=== PATIENT | female | born 1995 | race American Indian/Alaskan Native ===

== ENCOUNTER 2017-09-16 13:30 | Emergency (ER) | payer MEDICAID ==
[2017-09-16 14:37] VITALS: BP 107/52
[2017-09-16 15:44] LABS: Basophils % (Auto) 0.5 % (0.0-1.8); Eosinophils # (Auto) 0.1 K/mm3 (0.0-0.4); Eosinophils % (Auto) 1.3 % (0.0-4.3); Hematocrit 37.2 % (30.3-42.9); Hemoglobin 12.2 gm/dl (10.1-14.3); Lymphocytes # (Auto) 1.9 K/mm3 (1.2-5.4); Lymphocytes % (Auto) 29.1 % (13.4-35.0); Mean Corpuscular HGB Conc 33 % (30-34); Mean Corpuscular Hemoglobin 26 pg (28-32); Mean Corpuscular Volume 79 fl (79-97); Monocytes # (Auto) 0.6 K/mm3 (0.0-0.8); Monocytes % (Auto) 9.3 % (0.0-7.3); Platelet Count 218 K/mm3 (140-440); Red Blood Count 4.69 M/mm3 (3.65-5.03); Red Cell Distribution Width 16.4 % (13.2-15.2)
--- NOTE | 2017-09-16 17:51 | Emergency Department Report ---
ED Female HPI - General Chief complaint: Vaginal Bleeding Stated complaint: VAGINAL BLEEDING/ Time Seen by Provider: 09/16/17 15:14 Source: patient Mode of arrival: Ambulatory Limitations: No Limitations - History of Present Illness Initial comments: 22-year-old -[place] female reports that she is 8 weeks comes in with vaginal bleeding for 2 days and abdominal cramping. Patient reports she 's been having small clots for the last 2 days. She reports that she's been having abdominal cramping consistent for the 8 weeks she's been . Patient reports that heard, cramping pain is 7 out of 10. She denies any nausea vomiting no fever no chills no back pain or dysuria. She reports that she is on her third pads as of today. 1 para 0. She has not started OB care appointment scheduled for this Thursday. MD Complaint: vaginal bleeding, pelvic pain -: days(s) (vaginal bleeding with small clots 2 days), week(s) (abdominal cramping 8 weeks) Location: suprapubic Radiation: non-radiating Severity scale (0 -10): 7 Quality: cramping Consistency: constant Improves with: none Worsens with: none Are you Now?: Yes (8weeks) Last Menstrual Period: 07/21/17 EDC: 04/27/18 Associated Symptoms: vaginal bleeding, abdominal pain. denies: vaginal discharge, nausea/vomiting, fever/chills, headaches, loss of appetite, hematuria , shortness of breath, syncope, weakness - Related Data Sexually active: Yes : 1 Para: 0 Previous Rx's Medication Instructions Recorded Last Taken Type Amoxicillin [Amoxicillin TAB] 875 mg PO BID #14 tablet 09/16/17 Unknown Rx Allergies Allergy/AdvReac Type Severity Reaction Status Date / Time No Known Allergies Allergy Unverified 09/16/17 14:32 ED Review of Systems ROS: Stated complaint: VAGINAL BLEEDING/ Other details as noted in HPI Constitutional: denies: chills, fever Cardiovascular: denies: chest pain, palpitations, dyspnea on exertion Gastrointestinal: abdominal pain Genitourinary: other (vaginal bleeding) Musculoskeletal: denies: back pain, joint swelling, arthralgia Skin: denies: rash, lesions Neurological: denies: headache, weakness, paresthesias Psychiatric: denies: anxiety, depression Hematological/Lymphatic: denies: easy bleeding, easy bruising ED Past Medical Hx - Past Medical History Previous Medical History?: No - Surgical History Past Surgical History?: No - Social History Smoking Status: Never Smoker Substance Use Type: Alcohol - Medications Home Medications: Home Medications Medication Instructions Recorded Confirmed Last Taken Type Amoxicillin [Amoxicillin TAB] 875 mg PO BID #14 tablet 09/16/17 Unknown Rx ED Physical Exam - General Limitations: No Limitations General appearance: alert, in no apparent distress - Head Head exam: Present: atraumatic, normocephalic - Eye Eye exam: Present: normal appearance - Respiratory Respiratory exam: Present: normal lung sounds bilaterally. Absent: respiratory distress - Cardiovascular Cardiovascular Exam: Present: regular rate, normal rhythm. Absent: systolic murmur, diastolic murmur, rubs, gallop - GI/Abdominal GI/Abdominal exam: Present: soft, normal bowel sounds. Absent: distended, tenderness, guarding, rebound - Extremities Exam Extremities exam: Present: normal inspection, full ROM - Neurological Exam Neurological exam: Present: alert, oriented X3 - Psychiatric Psychiatric exam: Present: normal affect, normal mood - Skin Skin exam: Present: warm, dry, intact, normal color. Absent: rash ED Course Vital Signs 09/16/17 14:32 Temperature 98.1 F Pulse Rate 84 Respiratory 20 Rate Blood Pressure 107/52 O2 Sat by Pulse 100 Oximetry ED Medical Decision Making - Lab Data Result diagrams: 09/16/17 15:16 - Radiology Data Radiology results: report reviewed, image reviewed FINAL REPORT PROCEDURE: US OB TRANSVAGINAL TECHNIQUE: Real-time transvaginal sonography of the uterus, placenta, amniotic fluid, adnexa, and fetus was performed with image documentation. Measurements were obtained to determine age/size. M-mode Doppler was used to document heartbeat. CPT 29999 HISTORY: 8 weeks vaginal bleeding with cramps COMPARISON: No prior studies are available for comparison. FINDINGS: A fluid-filled sac measuring 6 millimeters in diameter is identified in the uterine cavity corresponding to 5 weeks and 2 days of gestational age. There is no evidence of any pole. Bilateral ovaries are normal in size and echotexture. There is no free fluid in the pelvic cavity. IMPRESSION: A fluid-filled sac in the uterine cavity without a pole most likely represents a very early viable gestation versus an early gestation failure. Clinical correlation and follow-up studies are recommended. Transcribed By: [facility] [place] Dictated By: TERRY MOREJON Electronically Authenticated By: TERRY MOREJON Signed Date/Time: 09/16/171800 DD/ 00 TD/TT: 09/16/171800 - Medical Decision Making Patient has been evaluated by this provider fast track. CBC CMP hCG quantitative, ultrasound less than 14 weeks with OB transvaginal. Awaiting results of the ultrasound. Patient's hCG was only 376 which does not represent 8 weeks of . Discussed with patient she needs to return to the emergency room in 2-3 days to have her repeat serum hCG. We are looking for that number to double in size to determine if this is a viable . Discussed the patient she has a urinary tract infection lipase patient on amoxicillin 875 mg twice a day for 7 days. It is important for her to make contact to her [facility] and informed him of her ER visit and outcome. Patient verbalized understanding. Critical care attestation.: If time is entered above; I have spent that time in minutes in the direct care of this critically ill patient, excluding procedure time. ED Disposition Clinical Impression: Threatened affecting intrauterine , UTI (urinary tract infection) in in first trimester Disposition: DC-01 TO HOME OR SELFCARE Is pt being admited?: No Does the pt Need Aspirin: No Condition: Stable Instructions: Threatened Miscarriage (ED) Additional Instructions: It is very important for you to follow up in 3 days to have a repeat hCG serum to determine if there levels are increasing. Level should double in number in 2 -3 days for a viable . You have a urinary tract infection I will place her antibiotics for that. It is important for him to also follow-up with her OB provider as well.. Prescriptions: Amoxicillin [Amoxicillin TAB] 875 mg PO BID #14 tablet Referrals: [facility] [Provider Group] - 3-5 Days [facility] [Provider Group] - 3-5 Days [facility] [Provider Group] - 3-5 Days [facility] [Provider Group] - 3-5 Days Forms: Work/School Release Form(ED)
--- NOTE | 2017-09-16 18:06 | Ultrasound Report ---
FINAL REPORT PROCEDURE: US OB < = 14 WEEKS FETUS TECHNIQUE: Real-time transabdominal sonography of the uterus, placenta, amniotic fluid, adnexa, and fetus was performed with image documentation. Measurements were obtained to determine age/size. M-mode Doppler was used to document heartbeat. CPT 89376 HISTORY: 8 weeks with vaginal bleeding and cramps COMPARISON: No prior studies are available for comparison. FINDINGS: A fluid-filled sac measuring 6 millimeters in diameter is identified in the uterine cavity corresponding to 5 weeks and 2 days of gestational age. There is no evidence of any pole. Bilateral ovaries are normal in size and echotexture. There is no free fluid in the pelvic cavity. IMPRESSION: A fluid-filled sac in the uterine cavity without a pole most likely represents a very early viable gestation versus an early gestation failure. Clinical correlation and follow-up studies are recommended.
--- NOTE | 2017-09-16 18:06 | Ultrasound Report ---
FINAL REPORT PROCEDURE: US OB TRANSVAGINAL TECHNIQUE: Real-time transvaginal sonography of the uterus, placenta, amniotic fluid, adnexa, and fetus was performed with image documentation. Measurements were obtained to determine age/size. M-mode Doppler was used to document heartbeat. CPT 45139 HISTORY: 8 weeks vaginal bleeding with cramps COMPARISON: No prior studies are available for comparison. FINDINGS: A fluid-filled sac measuring 6 millimeters in diameter is identified in the uterine cavity corresponding to 5 weeks and 2 days of gestational age. There is no evidence of any pole. Bilateral ovaries are normal in size and echotexture. There is no free fluid in the pelvic cavity. IMPRESSION: A fluid-filled sac in the uterine cavity without a pole most likely represents a very early viable gestation versus an early gestation failure. Clinical correlation and follow-up studies are recommended.
[2017-09-16 18:17] LABS: Bilirubin,Urine NEG (Negative); Blood,Urine LG (Negative); Color,Urine Yellow (Yellow); Mucus,Urine FEW /HPF; Protein,Urine <15 mg/dL mg/dL (Negative); Urobilinogen,Urine < 2.0 mg/dL (<2.0)
== END 2017-09-16 18:45 | disposition home or self-care (01) ==
LOC: ED 13:30
DX: O23.41 Unspecified infection of urinary tract in pregnancy, first trimester (principal); O20.0 Threatened abortion; Z3A.08 8 weeks gestation of pregnancy
CPT/HCPCS: 36415; 76801; 76817; 81001; 84702; 85025; 86850; 86900; 86901; 99284

== ENCOUNTER 2019-03-06 10:16 | Outpatient (CLI) | payer MEDICAID ==
[2019-03-06 10:30] VITALS: BP 124/64
[2019-03-06] MEDS ORDERED: BETAMET ACET/BETAMET NA PH 6 MG/ML INJ 5 ML MDV IM ONE (11:11)
== END 2019-03-06 11:50 | disposition home or self-care (01) ==
LOC: TRG 10:16 → EDSTATUS 10:36 → TRG 11:50
PROVIDERS: ATTEND Obstetrics & Gynecology
DX: O36.8130 Decreased fetal movements, third trimester, not applicable or unspecified (principal); Z3A.28 28 weeks gestation of pregnancy
CPT/HCPCS: 59025; 96372; J0702

== ENCOUNTER 2019-03-07 11:21 | Outpatient (CLI) | payer MEDICAID ==
[2019-03-07] MEDS ORDERED: BETAMET ACET/BETAMET NA PH 6 MG/ML INJ 5 ML MDV IM ONE (11:26)
== END 2019-03-07 11:46 | disposition home or self-care (01) ==
LOC: TRG 11:21
PROVIDERS: ATTEND Obstetrics & Gynecology
DX: O47.03 False labor before 37 completed weeks of gestation, third trimester (principal); Z3A.28 28 weeks gestation of pregnancy
CPT/HCPCS: 96372; J0702

== ENCOUNTER 2019-03-28 14:21 | Outpatient (CLI) | payer MEDICAID ==
[2019-03-28 16:06] LABS: Bilirubin,Urine NEG (Negative); Blood,Urine NEG (Negative); Color,Urine Amber (Yellow); Mucus,Urine 3+ /HPF
--- NOTE | 2019-03-28 16:53 | Ultrasound Report ---
ULTRASOUND BIOPHYSICAL PROFILE INDICATION: well being. COMPARISON: None available. FINDINGS: breathing movement = 2 Gross body movement = 2 tone = 2 Qualitative amniotic fluid volume = 2 Total biophysical score = 8/8 Presentation is Cephalic. heart rate is 164 beats per minute. IMPRESSION: biophysical profile = 12/16 Signer Name: Polo Maloney MD Signed: 03/28/2019 4:48 PM Workstation Name: [id number]
[2019-03-28 17:12] VITALS: BP 114/60
== END 2019-03-28 17:16 | disposition home or self-care (01) ==
LOC: TRG 14:21
PROVIDERS: ATTEND Obstetrics & Gynecology
DX: O47.03 False labor before 37 completed weeks of gestation, third trimester (principal); Z3A.31 31 weeks gestation of pregnancy
CPT/HCPCS: 76819; 81001; 87086

== ENCOUNTER 2019-03-29 18:07 | Outpatient (CLI) | payer MEDICAID ==
[2019-03-29 19:42] VITALS: BP 108/64
== END 2019-03-29 19:58 | disposition home or self-care (01) ==
LOC: TRG 18:07
PROVIDERS: ATTEND Obstetrics & Gynecology
DX: O47.03 False labor before 37 completed weeks of gestation, third trimester (principal); Z3A.31 31 weeks gestation of pregnancy
CPT/HCPCS: 59025

== ENCOUNTER 2019-05-16 06:44 | Outpatient (CLI) | payer MEDICAID ==
[2019-05-16 07:03] VITALS: BP 124/72
== END 2019-05-16 08:51 | disposition home or self-care (01) ==
LOC: TRG 06:44
PROVIDERS: ATTEND Obstetrics & Gynecology
DX: Z53.9 Procedure and treatment not carried out, unspecified reason (principal)